=== PATIENT | male | born 1990 | race Asian ===

== ENCOUNTER 2019-09-13 22:10 | Emergency (ER) | payer SELFPAY ==
[~2019-09-13] VITALS: Ht 175.3 cm; Wt 69.0 kg
[2019-09-13 22:20] VITALS: TEMP 97.8
[2019-09-14 00:45] VITALS: BP 128/70; PULSE 60
[2019-09-14] MEDS ORDERED: CRUTCHES MC (03:52)
== END 2019-09-14 01:20 | disposition home or self-care (01) ==
LOC: COL.ER 22:10
DX: S86.002A Unspecified injury of left Achilles tendon, initial encounter (principal); X50.1XXA Overexertion from prolonged static or awkward postures, initial encounter; Y93.67 Activity, basketball